=== PATIENT | female | born 1980 | race Caucasian/White ===

== ENCOUNTER 2016-09-16 10:15 | Day surgery (SDC) | payer MEDICAID ==
[~2016-09-16] VITALS: Ht 160 cm; Wt 79.4 kg
[2016-09-16] MEDS ORDERED: MIDAZOLAM 2 MG/2 ML VIAL ONE (12:03)
[2016-09-16] MEDS ORDERED: fentaNYL 0.05 MG/ML VIAL ONE (12:03)
[2016-09-16] MEDS ORDERED: MIDAZOLAM 2 MG/2 ML VIAL IVP ONE (12:45)
== END 2016-09-16 14:25 | disposition home or self-care (01) ==
LOC: MDS 10:15 → MMU 10:23 → MDS 14:25
PROVIDERS: ATTEND Internal Medicine Gastroenterology
DX: K44.9 Diaphragmatic hernia without obstruction or gangrene (principal); K29.90 Gastroduodenitis, unspecified, without bleeding; K20.9 Esophagitis, unspecified
CPT/HCPCS: 36415; 43239; 86677; J2250